=== PATIENT | male | born 1980 | race Caucasian/White ===

== ENCOUNTER 2016-11-20 19:15 | Emergency (ER) | payer MEDICAID, OTHER ==
[2016-11-20 19:57] LABS: #Basophils 0.2 thou/uL (0.0-0.2); #Eosinphils 0.3 thou/uL (0.0-0.7); #Lymphocytes 2.5 thou/uL (1.20-3.40); #Monocytes 0.9 thou/uL (0.11-0.59); #Neutrophils 5.7 thou/uL (1.40-6.50); %Basophils 1.6 % (0.0-1.0); %Eosinophils 3.4 % (0.0-10.0); %Lymphocytes 25.8 % (21.0-51.0); %Monocytes 9.7 % (0.0-10.0); %Neutrophils 59.5 % (42.0-75.0); Hemoglobin 17.4 g/dL (14.0-18.0); Mean Corpuscular HGB CONC 32.1 g/dL (32.0-36.0); Mean Corpuscular Hemoglobin 29.1 pg (27.0-31.0); Mean Corpuscular Volume 90.5 fl (80.0-94.0); Mean Platelet Volume 7.7 fL (7.4-10.4); Platelet Count 286 thou/uL (130-400); RBC Distribution Width 12.9 % (11.5-14.5); White Blood Cell (WBC) Count 9.6 thou/uL (4.8-10.8)
[2016-11-20] MEDS ORDERED: Lorazepam 2 MG/ML VIAL ONE (20:06)
[2016-11-20 20:07] LABS: ALT (SGPT) 58 U/L (0-55); AST (SGOT) 40 U/L (5-34); Albumin 4.1 g/dL (3.5-5.0); Alkaline Phosphatase 68 U/L (40-150); Anion Gap 15 mmol/L (10-20); BUN (Urea Nitrogen) 12 mg/dL (8.9-20.6); Bilirubin, Total 0.6 mg/dL (0.2-1.2); Calc. Creatinine Clearance 0 mL/min (70-130); Carbon Dioxide 24 mmol/L (22-29); Chloride 104 mmol/L (98-107); Estimated GFR-MDRD 77; Globulin 3.5 g/dL (2.4-3.5); Glucose 149 mg/dL (70-105); Potassium 3.9 mmol/L (3.5-5.1); Protein, Total 7.6 g/dL (6.0-8.3); Sodium 139 mmol/L (136-145)
[2016-11-20 20:11] LABS: CKMB 5.1 ng/mL (0-6.6); Troponin I 0.017 ng/mL (< 0.028)
--- NOTE | 2016-11-20 20:34 | RAD ---
SINGLE VIEW OF THE CHEST 11/20/16 COMPARISON: None. HISTORY: Difficulty breathing when laying down. Dyspnea. FINDINGS: Single view of the chest shows a normal sized cardiomediastinal silhouette. There is no evidence of consolidation, mass, or pleural effusion. The bones are unremarkable. IMPRESSION: No evidence of acute cardiopulmonary disease. POS: [facility]
[2016-11-20] MEDS ORDERED: predniSONE 20 MG TAB ONE (21:22)
== END 2016-11-20 21:19 | disposition home or self-care (01) ==
LOC: NAV ERS 19:15
DX: F41.0 Panic disorder [episodic paroxysmal anxiety] (principal); G51.0 Bell's palsy; E78.5 Hyperlipidemia, unspecified; F32.9 Major depressive disorder, single episode, unspecified
CPT/HCPCS: 71010; 80053; 82553; 84484; 85025; 85379; 93005; 94760; 96374; J2060; J7506

== ENCOUNTER 2017-01-09 18:51 | Emergency (ER) | payer OTHER ==
[~2017-01-09 18:51] MED LIST: Iopamidol 370 76% 100 ML VIAL ONE
--- NOTE | 2017-01-09 19:36 | RAD ---
FRONTAL RADIOGRAPH CHEST 01/09/17 COMPARISON: 11/20/16 HISTORY: Shortness of breath. FINDINGS: Heart and mediastinal contours are stable. Lungs appear clear. IMPRESSION: No acute findings. POS: [facility]
[2017-01-09 19:41] LABS: Hemoglobin 18.4 g/dL (14.0-18.0); Mean Corpuscular Hemoglobin 28.5 pg (27.0-31.0); Mean Platelet Volume 8.2 fL (7.4-10.4); Platelet Count 244 thou/uL (130-400); RBC Distribution Width 12.8 % (11.5-14.5); Red Blood Cell (RBC) Count 6.47 mill/uL (4.70-6.10); White Blood Cell (WBC) Count 9.4 thou/uL (4.8-10.8)
[2017-01-09] MEDS ORDERED: Lorazepam 2 MG/ML VIAL ONE (19:41)
[2017-01-09 19:42] LABS: ALT (SGPT) 56 U/L (8-55); AST (SGOT) 29 U/L (5-34); Albumin 4.2 g/dL (3.5-5.0); Alkaline Phosphatase 67 U/L (40-150); Anion Gap 17 mmol/L (10-20); BUN (Urea Nitrogen) 9 mg/dL (8.9-20.6); Bilirubin, Total 0.5 mg/dL (0.2-1.2); CK (CPK) 381 U/L (30-200); Calc. Creatinine Clearance 0 mL/min (70-130); Calcium 9.6 mg/dL (7.8-10.44); Carbon Dioxide 23 mmol/L (22-29); Chloride 103 mmol/L (98-107); Estimated GFR-MDRD 86; Globulin 3.8 g/dL (2.4-3.5); Glucose 157 mg/dL (70-105); Potassium 3.8 mmol/L (3.5-5.1); Sodium 139 mmol/L (136-145)
[2017-01-09 19:43] LABS: CKMB 3.4 ng/mL (0-6.6); Troponin I 0.018 ng/mL (< 0.028)
[2017-01-09 19:50] LABS: Eosinophils 6 % (0-10); Lymphocytes 29 % (21-51); MDiff Complete? YES; Monocytes 1 % (0-10); Neutrophil 64 % (42-75); PLT Morphology Comment Appears Adequate; RBC Morphology Normal
--- NOTE | 2017-01-09 21:27 | CT ---
CT ANGIOGRAM CHEST 01/09/17 COMPARISON: None. HISTORY: Shortness of breath, left arm tingling, elevated D-dimer. TECHNIQUE: Serial axial CT imaging at 2.5 mm intervals through the chest with IV contrast using a CT angiogram protocol. Coronal and oblique sagittal 3D reformatted imaging obtained. FINDINGS: The study is nondiagnostic with respect to evaluation for pulmonary embolism. The pulmonary arterial system is not adequately opacified with contrast media secondary to timing of the contrast bolus. T here is no axillary, mediastinal, or hilar adenopathy. Imaged upper abdomen appears grossly unremark able. No pleural, pericardial or mediastinal fluid. No pneumothorax seen. The lung parenchyma is unr emarkable bilaterally. No acute osseous abnormality. IMPRESSION: Secondary to suboptimal opacification of the pulmonary arterial vasculature, this study is nondiagno stic with respect to evaluation for pulmonary embolism. No acute findings are seen. POS: [facility]
== END 2017-01-09 21:40 | disposition home or self-care (01) ==
LOC: NAV ERS 18:51
DX: F41.9 Anxiety disorder, unspecified (principal); E78.5 Hyperlipidemia, unspecified; F32.9 Major depressive disorder, single episode, unspecified; F90.9 Attention-deficit hyperactivity disorder, unspecified type; Z79.899 Other long term (current) drug therapy
CPT/HCPCS: 36415; 71010; 71275; 80053; 82553; 84484; 85025; 85379; 93005; 96374; J2060

== ENCOUNTER 2017-04-24 18:58 | Emergency (ER) | payer OTHER ==
[2017-04-24] MEDS ORDERED: Lorazepam 2 MG/ML VIAL ONE (19:50)
[2017-04-24 19:59] LABS: #Basophils 0.1 thou/uL (0.0-0.2); #Eosinphils 0.3 thou/uL (0.0-0.7); #Lymphocytes 2.5 thou/uL (1.20-3.40); #Monocytes 0.8 thou/uL (0.11-0.59); #Neutrophils 6.8 thou/uL (1.40-6.50); %Basophils 1.2 % (0.0-1.0); %Lymphocytes 23.9 % (21.0-51.0); %Monocytes 7.3 % (0.0-10.0); %Neutrophils 64.6 % (42.0-75.0); Hemoglobin 17.3 g/dL (14.0-18.0); Mean Corpuscular HGB CONC 32.6 g/dL (32.0-36.0); Mean Corpuscular Hemoglobin 28.9 pg (27.0-31.0); Mean Corpuscular Volume 88.4 fl (80.0-94.0); Mean Platelet Volume 7.4 fL (7.4-10.4); Platelet Count 259 thou/uL (130-400); RBC Distribution Width 13.1 % (11.5-14.5); Red Blood Cell (RBC) Count 6.01 mill/uL (4.70-6.10); White Blood Cell (WBC) Count 10.6 thou/uL (4.8-10.8)
[2017-04-24 20:09] LABS: ALT (SGPT) 52 U/L (8-55); AST (SGOT) 32 U/L (5-34); Albumin 4.1 g/dL (3.5-5.0); Alkaline Phosphatase 79 U/L (40-150); Anion Gap 13 mmol/L (10-20); BUN (Urea Nitrogen) 8 mg/dL (8.9-20.6); Bilirubin, Total 0.5 mg/dL (0.2-1.2); Calc. Creatinine Clearance 0 mL/min (70-130); Calcium 9.5 mg/dL (7.8-10.44); Carbon Dioxide 25 mmol/L (22-29); Chloride 104 mmol/L (98-107); Estimated GFR-MDRD 86; Globulin 3.8 g/dL (2.4-3.5); Glucose 181 mg/dL (70-105); Potassium 3.5 mmol/L (3.5-5.1); Protein, Total 7.9 g/dL (6.0-8.3); Sodium 138 mmol/L (136-145)
== END 2017-04-24 21:40 | disposition home or self-care (01) ==
LOC: NAV ERS 18:58
DX: F41.9 Anxiety disorder, unspecified (principal); E78.5 Hyperlipidemia, unspecified; F32.9 Major depressive disorder, single episode, unspecified; F90.9 Attention-deficit hyperactivity disorder, unspecified type; Z79.899 Other long term (current) drug therapy
CPT/HCPCS: 80053; 84443; 85025; 94760; 96361; 96374; J2060

== ENCOUNTER 2017-05-15 19:32 | Emergency (ER) | payer OTHER ==
[2017-05-15] MEDS ORDERED: Acetaminophen 500 MG TAB ONE (20:00)
[2017-05-15] MEDS ORDERED: Lorazepam 2 MG/ML VIAL ONE (20:00)
== END 2017-05-15 20:38 | disposition home or self-care (01) ==
LOC: NAV ERS 19:32
DX: F41.9 Anxiety disorder, unspecified (principal); I10 Essential (primary) hypertension; F90.9 Attention-deficit hyperactivity disorder, unspecified type; E78.5 Hyperlipidemia, unspecified; Z79.899 Other long term (current) drug therapy
CPT/HCPCS: 96372; J2060

== ENCOUNTER 2017-05-17 19:10 | Emergency (ER) | payer OTHER ==
[2017-05-17 19:52] LABS: #Basophils 0.1 thou/uL (0.0-0.2); #Eosinphils 0.3 thou/uL (0.0-0.7); #Lymphocytes 2.3 thou/uL (1.20-3.40); #Monocytes 0.7 thou/uL (0.11-0.59); #Neutrophils 6.6 thou/uL (1.40-6.50); %Basophils 1.2 % (0.0-1.0); %Eosinophils 2.7 % (0.0-10.0); %Monocytes 7.1 % (0.0-10.0); %Neutrophils 65.9 % (42.0-75.0); Hemoglobin 17.1 g/dL (14.0-18.0); Mean Corpuscular HGB CONC 32.2 g/dL (32.0-36.0); Mean Corpuscular Hemoglobin 28.5 pg (27.0-31.0); Mean Corpuscular Volume 88.5 fl (80.0-94.0); Mean Platelet Volume 7.6 fL (7.4-10.4); Platelet Count 274 thou/uL (130-400); RBC Distribution Width 13.4 % (11.5-14.5); Red Blood Cell (RBC) Count 6.01 mill/uL (4.70-6.10)
--- NOTE | 2017-05-17 20:03 | RAD ---
CHEST ONE VIEW: History: Chest and left arm pain. Comparison: 11-20-16 FINDINGS: Cardiac silhouette is magnified and enlarged. Pulmonary vasculature is upper limits of normal and ac centuated by shallow inspiration. Mediastinum is midline. No lobar consolidation or pneumothorax are apparent. sound engineering technician leads overlie the chest. IMPRESSION: Borderline cardiomegaly and pulmonary vascular congestion. POS: [facility]
[2017-05-17 20:08] LABS: CKMB 3.9 ng/mL (0-6.6); Troponin I 0.015 ng/mL (< 0.028)
[2017-05-17 20:10] LABS: ALT (SGPT) 47 U/L (8-55); AST (SGOT) 28 U/L (5-34); Albumin 4.1 g/dL (3.5-5.0); Alkaline Phosphatase 72 U/L (40-150); Anion Gap 14 mmol/L (10-20); BUN (Urea Nitrogen) 11 mg/dL (8.9-20.6); Bilirubin, Total 0.6 mg/dL (0.2-1.2); CK (CPK) 361 U/L (30-200); Calc. Creatinine Clearance 0 mL/min (70-130); Calcium 9.5 mg/dL (7.8-10.44); Carbon Dioxide 26 mmol/L (22-29); Chloride 103 mmol/L (98-107); Estimated GFR-MDRD 82; Globulin 3.9 g/dL (2.4-3.5); Glucose 106 mg/dL (70-105); Lipase 15 U/L (8-78); Potassium 3.8 mmol/L (3.5-5.1); Sodium 139 mmol/L (136-145)
== END 2017-05-17 20:20 | disposition home or self-care (01) ==
LOC: NAV ERS 19:10
DX: F41.9 Anxiety disorder, unspecified (principal); I10 Essential (primary) hypertension; E78.5 Hyperlipidemia, unspecified; F32.9 Major depressive disorder, single episode, unspecified; F90.9 Attention-deficit hyperactivity disorder, unspecified type; Z79.899 Other long term (current) drug therapy
CPT/HCPCS: 36415; 71010; 80053; 82553; 83690; 84484; 85025; 93005; 94760

== ENCOUNTER 2024-04-13 07:45 | Emergency (ER) | payer SELFPAY ==
[2024-04-13] MEDS ORDERED: Orphenadrine Citrate 60 MG/2 ML VIAL ONE (08:11)
== END 2024-04-13 08:30 | disposition home or self-care (01) ==
LOC: NAV ERS 07:45
DX: M25.512 Pain in left shoulder (principal); E11.9 Type 2 diabetes mellitus without complications; I10 Essential (primary) hypertension; E78.00 Pure hypercholesterolemia, unspecified; Z55.6 Problems related to health literacy; V89.2XXA Person injured in unspecified motor-vehicle accident, traffic, initial encounter
CPT/HCPCS: 96372; 99283; J2360